=== PATIENT | male | born 1950 | race Caucasian/White ===

== ENCOUNTER 2018-10-01 09:00 | Emergency (ER) | payer MEDICARE ==
--- NOTE | 2018-10-01 09:42 | RADIOLOGY REPORT (SQ) ---
EXAM DESCRIPTION: SHOULDER RIGHT 2 OR MORE VIEWS COMPLETED DATE/TIME: 10/01/2018 9:30 am REASON FOR STUDY: limited ROM, felt "pop" R shoulder COMPARISON: None. NUMBER OF VIEWS: Three views. TECHNIQUE: Internal rotation, external rotation, and Y view images acquired of the right shoulder. LIMITATIONS: None. FINDINGS: MINERALIZATION: Normal. BONES: No acute fracture or dislocation. No worrisome bone lesions. JOINTS: No dislocation. VISUALIZED LUNGS AND RIBS: No pneumothorax. No rib fracture. SOFT TISSUES: No radiopaque foreign body. OTHER: No other significant finding. IMPRESSION: NEGATIVE STUDY OF THE RIGHT SHOULDER. NO RADIOGRAPHIC EVIDENCE OF ACUTE INJURY. TECHNICAL DOCUMENTATION: JOB ID: [id number] [employer]- All Rights Reserved Reading location - IP/workstation name: [email or web address]
[2018-10-01] MEDS: OXYCODONE-ACETAMINOPHEN 5-325 MG TABLET PO ONE ×2 (09:44→09:49)
[2018-10-01] MEDS ORDERED: OXYCODONE HCL IR 5 MG TABLET PO ONE (09:48)
--- NOTE | 2018-10-01 10:24 | ER Document Report ---
HPI - HPI Pain Level: 5 Notes: Patient is a 68-year-old male who presents with chief complaint of right shoulder pain. Patient reports this is been going on for several days. He denies any specific injury however he reports when he moves his shoulder he feels an hears a popping sensation. Patient reports he has had trouble with his shoulder before however he has never formally had it worked up or diagnosed. Patient reports he has taken ibuprofen and Tylenol with no relief. - MUSCULOSKELETAL Musculoskeletal: REPORTS: Extremity pain - R shoulder Past Medical History - General Information source: Patient - Social History Smoking Status: Former Smoker Frequency of alcohol use: None Drug Abuse: None Family History: Reviewed & Not Pertinent Patient has suicidal ideation: No Patient has homicidal ideation: No - Past Medical History Cardiac Medical History: Reports: Hx Hypertension Renal/ Medical History: Denies: Hx Peritoneal Dialysis Past Surgical History: Reports: Hx Abdominal Surgery - hernia repair, Hx Cholecystectomy, Hx Orthopedic Surgery - Immunizations Immunizations up to date: Yes Vertical Provider Document - CONSTITUTIONAL Notes: PHYSICAL EXAMINATION: GENERAL: Well-appearing, well-nourished and in no acute distress. HEAD: Atraumatic, normocephalic. EYES: Pupils equal round extraocular movements intact, conjunctiva are normal. ENT: Nares patent NECK: Normal range of motion LUNGS: No respiratory distress Musculoskeletal: Limited range of motion to right shoulder, no crepitus or deformity noted on palpation. 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 Normal motor and sensation distal to area of pain. NEUROLOGICAL: Normal speech, normal gait. PSYCH: Normal mood, normal affect. SKIN: Warm, Dry, normal turgor, no rashes or lesions noted. - INFECTION CONTROL TRAVEL OUTSIDE OF THE [place] IN LAST 30 DAYS: No Course - Re-evaluation Re-evalutation: X-rays negative for any acute findings to include fracture or dislocation. Patient will be given a sling for support, discussed with patient the need for follow-up with orthopedics for possible physical therapy and/or MRI. Patient verbalized understanding of same. Patient will be discharged home in stable condition. - Vital Signs Vital signs: Temp Pulse Resp BP Pulse Ox 97.6 F 85 16 136/87 H 97 10/01/18 09:05 10/01/18 09:05 10/01/18 09:05 10/01/18 09:05 10/01/18 09:05 Procedures - Immobilization Left shoulder Immobilizer type: Sling Discharge - Discharge Clinical Impression: Right shoulder pain Qualifiers: Chronicity: chronic Qualified Code(s): M25.511 - Pain in right shoulder Condition: Stable Disposition: HOME, SELF-CARE Additional Instructions: Shoulder Injury You have injured your shoulder. This usually results from stretching or tearing of the tendons during trauma. Time and protection are required in order to heal properly. Many injuries are quite disabling, and should be taken seriously. Initial treatment includes cold packs and a sling to rest the shoulder. The physician has assessed the seriousness of your injury, and has outlined a treatment plan. Understand that this treatment may change, depending on how you progress. If a re-examination was recommended, it is important that you follow up as instructed. Some shoulder injuries (such as partial tear of the rotator cuff) are only suspected after you've failed to improve. Call us if there's severe pain, numbness, or loss of function. Please follow-up with orthopedics, they may want to consider doing an MRI due to the severity of your shoulder pain. Use the sling as needed for comfort and support. Continue taking her pain medications as prescribed by pain management. I have enclosed a contact lens flashing puncher for orthopedics. You may follow- up with whoever you would like though. Referrals: RAMANA TITUS MD [ACTIVE STAFF] - Follow up as needed
[2018-10-01 10:43] VITALS: BP 114/83
== END 2018-10-01 10:43 | disposition home or self-care (01) ==
LOC: ER 09:00
DX: M25.511 Pain in right shoulder (principal); Z87.891 Personal history of nicotine dependence; I10 Essential (primary) hypertension
CPT/HCPCS: 99283; 73030; A9270